=== PATIENT | female | born 1950 | race Asian ===

== ENCOUNTER 2020-02-24 06:09 | Outpatient (CLI) | payer MEDICARE, SELFPAY ==
[2020-02-24 16:38] LABS: SARS-CoV-2 RNA PCR Negative
== END 2020-02-24 06:10 | disposition home or self-care (01) ==
LOC: ANHCOVIDDT 06:10
PROVIDERS: PCP Internal Medicine; Visit Provider Internal Medicine Gastroenterology
DX: Z01.818 Encounter for other preprocedural examination (principal); Z11.59 Encounter for screening for other viral diseases
CPT/HCPCS: 87635; U0003

== ENCOUNTER 2020-02-26 00:41 | Day surgery (SDC) | payer MEDICARE, SELFPAY ==
[2020-02-22 10:54] VITALS: BMI 25.3
[2020-02-26] MEDS: LACTATED RINGERS 1,000 ML 150 ML IV CONT (06:48)
[2020-02-26 06:49] VITALS: BP 155/87; PULSE 65; RESP 16; TEMP 36.4; O2SAT 100; BMI 26.4
--- NOTE | 2020-02-26 07:03 | WPDANESEPPF ---
Anes - Initial Pre Proc Eval Procedure: Operation Date: 02/26/20 07:30 Proposed Procedures p Esophagogastroduodenoscopy - Mando Sanders MD Date/Time: 02/26/20 07:03 Surgeon: Mando Sanders MD Pre Op Diagnosis: UPPER GASTRIC PAIN, DYSPEPSIA Patient Data Age: 69 Gender: F Height: 4 ft 11 in Weight: 59.4 kg Last Vital Signs Temp 36.4 C 02/26/20 06:49 Pulse 65 02/26/20 06:49 Resp 16 02/26/20 06:49 BP 155/87 H 02/26/20 06:49 Pulse Ox 100 02/26/20 06:49 Allergies Allergy/AdvReac Type Severity Reaction Status Date / Time Penicillins Allergy Mild Unknown Verified 02/26/20 06:41 Home Medications Medication Instructions Recorded Confirmed Type metoprolol tartrate 50 mg PO BID 02/22/20 02/26/20 History olmesartan-hydrochlorothiazide 1 tablet PO DAILY 02/22/20 02/26/20 History [Benicar HCT] pantoprazole 40 mg PO HS 02/22/20 02/26/20 History rosuvastatin [Crestor] 10 mg PO DAILY 02/22/20 02/26/20 History Patient hx anesthesia problems: none Family hx anesthesia problems: none PMFSH Past Medical History Medical History GERD (gastroesophageal reflux disease) Hepatitis Hyperlipidemia Hypertension Social History Social History Gender identity (if verbalized by the patient): Female Anes - Eval Final PreProcedure Day of Procedure 02/26/20 07:03 Patient weight: overweight Heart: regular rate and rhythm Lungs: clear to auscultation Airway: Mallampati scale class II Neurological: other (alert) Last oral intake: >/= 8 hours ASA classification: III Emergent: no Anesthetic plan: proceed Anesthesia type and monitoring: general GIVS and standard monitoring Informed Consent: The patient's anesthetic plan and its attendant risks and benefits were discussed with the patient/family/POA. Questions were solicited and answers provided to the satisfaction of the patient/family/POA.
[2020-02-26] MEDS: BENZOCAINE (*SP) 60 ML SPRAY CAN (HURRICAINE) 1 SPRAY MUCOUS MEM (07:29)
--- NOTE | 2020-02-26 07:35 | P.CONGI_ITS ---
Assessment and Plan Assessment and plan (1) GERD (gastroesophageal reflux disease): Code(s): K21.9 - Gastro-esophageal reflux disease without esophagitis Status: Acute Assessment and Plan: Patient with recurrent and persistent epigastric pain. Poorly response to current medications. Plan is for an EGD to assess more thoroughly. If PPI dose fails to alleviate symptoms brief trial of Elavil may be a consideration for functional complaints. (2) Dyspepsia: Code(s): R10.13 - Epigastric pain Status: Acute GI Consult Note Consult date/time: 02/26/20 07:35 HPI: Brittany Walton is a 69 year old female Seen in evaluation at the request of Dr. Domingo Ferrer. patient complains of abdominal pain since February of 2019. She describes is epigastric pain. This pain usually disc comes after eating. W orse after breakfast. She describes a needle like discomfort. Followed by epigastric burning pain. Symptoms appear to occur off and on. She does note some regurgitation. She also complains of throat discomfort. Recently saw ENT and had a normal exam. She was empirically tried on antibiotics with no relief of symptoms. Previously had a colonoscopy in EGD [address] simi Motta that were described as unremarkable. Current medications include omeprazole trial with no change in symptoms. Currently on Protonix 40 mg p.o. daily. Review of Systems Review of Systems: All systems reviewed & are unremarkable except as noted in HPI and below PMFSH Past Medical History Medical History GERD (gastroesophageal reflux disease) Hepatitis Hyperlipidemia Hypertension Social History Social History Gender identity (if verbalized by the patient): Female Meds Home Medications and Allergies Home Medications Medication Instructions Recorded Confirmed Type metoprolol tartrate 50 mg PO BID 02/22/20 02/26/20 History olmesartan-hydrochlorothiazide 1 tablet PO DAILY 02/22/20 02/26/20 History [Benicar HCT] pantoprazole 40 mg PO HS 02/22/20 02/26/20 History rosuvastatin [Crestor] 10 mg PO DAILY 02/22/20 02/26/20 History Allergies Allergy/AdvReac Type Severity Reaction Status Date / Time Penicillins Allergy Mild Unknown Verified 02/26/20 06:41 Vital Signs Vital Signs - 24 hr 02/26/20 06:49 Temperature 36.4 C Pulse Rate 65 Respiratory Rate 16 Blood Pressure 155/87 H Pulse Oximetry 100 Exam Narrative: Exam Narrative: Physical exam reveals her to be alert. HEENT exam unremarkable. She is anicteric. Lungs are clear to auscultation and percussion. Heart is without murmur or extra sounds. Abdominal exam bowel sounds are present soft nontender with no organomegaly.
[2020-02-26 07:40] VITALS: BP 191/82; PULSE 61; RESP 17; O2SAT 98
[2020-02-26 07:50] VITALS: BP 173/83; PULSE 56; RESP 14; O2SAT 97
[2020-02-26 08:00] VITALS: BP 187/86; PULSE 53; RESP 15; O2SAT 96
== END 2020-02-26 08:20 | disposition home or self-care (01) ==
PROVIDERS: PCP Internal Medicine; Visit Provider Internal Medicine Gastroenterology
PROC: 0DJ08ZZ Inspection of Upper Intestinal Tract, Via Natural or Artificial Opening Endoscopic (ICD-10-PCS; CPT 43235; principal; 2020-02-26 07:30)
DX: K21.9 Gastro-esophageal reflux disease without esophagitis (principal); I10 Essential (primary) hypertension; E78.5 Hyperlipidemia, unspecified; Z86.19 Personal history of other infectious and parasitic diseases
CPT/HCPCS: 43239; 87081; 87635; C9803; J2704; J7120; U0003

== ENCOUNTER 2024-07-14 10:15 | Outpatient (CLI) | payer MEDICARE, SELFPAY ==
[2024-07-14 11:01] LABS: Alanine Aminotransferase 139 U/L (6-35); Albumin Level 4.4 g/dL (3.5-5.1); Alkaline Phosphatase 53 U/L (38-126); Amylase 54 U/L (30-110); Anion Gap 6 mmol/L (4-12); Aspartate Amino Transferase 162 U/L (14-36); Bilirubin,Total 0.6 mg/dL (0.2-1.3); Blood Urea Nitrogen 13 mg/dL (7-17); Calcium 9.3 mg/dL (8.4-10.2); Carbon Dioxide 31 mmol/L (22-30); Chloride 101 mmol/L (98-107); Cholesterol 148 mg/dL (0-200); Estimated Glomerular Filt Rate > 60; Glucose 114 mg/dL (65-110); HDL Direct 78 mg/dL; Lipase 67 U/L (23-300); Potassium 3.9 mmol/L (3.4-5.0); Sodium 138 mmol/L (137-145); Triglycerides 232 mg/dL (<150)
[2024-07-14 11:12] LABS: LDL Cholesterol Direct 42 mg/dL
== END 2024-07-14 10:16 | disposition home or self-care (01) ==
PROVIDERS: PCP Internal Medicine; Visit Provider Internal Medicine Gastroenterology
DX: E78.5 Hyperlipidemia, unspecified (principal)
CPT/HCPCS: 36415; 80053; 80061; 82150; 82248; 83690

== ENCOUNTER 2024-07-24 10:50 | Outpatient (CLI) | payer MEDICARE, SELFPAY ==
[2024-07-24 11:31] LABS: INR 0.9; Prothrombin Time 12.9 Seconds (11.1-14.7)
[2024-07-24 11:48] LABS: Immunoglobulin G 867 mg/dL (700-1600); Immunoglobulin M 58 mg/dL (40-230)
[2024-07-24 13:01] LABS: Hepatitis B Core IgM Result Negative (Negative)
[2024-07-26 06:29] LABS: Hepatitis Be Antibody REACTIVE (NON-REACTIVE); Hepatitis Be Antigen NON-REACTIVE (NON-REACTIVE)
[2024-07-28 15:43] LABS: Hepatitis B DNA PCR NOT DETECTED (NOT DETECTED); Hepatitis B DNA PCR NOT DETECTED Log IU/mL (NOT DETECTED)
[2024-07-29 13:14] LABS: Actin Antibody (IgG) <20 U (<20)
[2024-08-06 00:08] LABS: Mitochondrial (M2) Ab (IgG) <20.0 U
== END 2024-07-24 10:51 | disposition home or self-care (01) ==
LOC: ANHLAB 10:59
PROVIDERS: PCP Internal Medicine; Visit Provider Internal Medicine Gastroenterology
DX: B19.10 Unspecified viral hepatitis B without hepatic coma (principal); R74.8 Abnormal levels of other serum enzymes
CPT/HCPCS: 36415; 82784; 83520; 85610; 86038; 86039; 86364; 86705; 86707; 87350; 87517

== ENCOUNTER 2024-08-11 08:02 | Outpatient (CLI) | payer MEDICARE, SELFPAY ==
--- NOTE | ~2024-08-11 | MR_ITS ---
EXAMINATION: MR abdomen wo/w con DATE: 08/11/2024 08:55 INDICATION: Abnormal liver function tests. TECHNIQUE: Magnetic resonance imaging (MRI) of the abdomen was performed without and with 10 mL Multi Martin intravenous contrast. COMPARISON: None. FINDINGS: There are cysts in the liver measuring up to 4.7 cm. The gallbladder is absent. The common duct is no rmal and measures 7 mm. There is decreased signal intensity in the spleen on in-phase imaging, consis tent with hemosiderosis. The pancreas, adrenal glands, and kidneys are normal. There are no dilated l oops of bowel. There are no pathologically enlarged lymph nodes. There is no free intraperitoneal flu id. IMPRESSION: 1. No etiology for abnormal liver function tests. Reviewed, dictated and finalized at location B.
== END 2024-08-11 08:03 | disposition home or self-care (01) ==
PROVIDERS: PCP Internal Medicine; Visit Provider Internal Medicine Gastroenterology
DX: R74.8 Abnormal levels of other serum enzymes (principal)
CPT/HCPCS: 74183; A9577

== ENCOUNTER 2024-11-17 11:19 | Outpatient (CLI) | payer MEDICARE, SELFPAY ==
--- OUTSIDE RECORDS SUMMARY | 2024-11-17 12:00 | XMS_ITS | Clinical Summary ---
Author Organization [facility] Address [address] [place] [address] Care Team Providers Care Supervisor Chlorine Liquefaction Name Role Phone Domingo Ferrer MD Primary Care Provider Roby Andino MD Unavailable [phone] Source Comments [facility],non-owned Affiliates and Associated Physician Practices is amultiple site organization consisting of ambulatory clinics and hospital sitesin [place], [place], [place]. This disclosure is being madepursuant to the Care Everywhere program and may not contain all information available regarding this patient. Last updated 18.[facility] Allergies Active Allergy Reactions Criticality Noted Date Comments Richy Inhibitors Cough 01/10/2012 Amlodipine Base Swelling 12/03/2019 Atorvastatin Myalgias 10/21/2013 Penicillins Angioedema 01/10/2012 Medications * Be aware that medications may not be up to date on this document. Alwaysverify current medications with the patient. Medication Sig Dispensed Refills Start Date End Date Status Coenzyme Q10 (COQ10 PO) Active rosuvastatin (CRESTOR) 10 MG tablet Take 10 mg by mouth once daily Active MAGNESIUM PO Active olmesartan-hydroCHLOR Othiazide (BENICAR HCT) 40-12.5 MG tablet Take 1 tablet by mouth once daily 30 tablet 5 07/14/2020 Active Active Problems Patient Care Coordination No te Formatting of this note migh t be different from the original. Electric Blanket Packer - Dr. Roby Andino Problem Noted Date Diagnosed Date Essential hypertension 01/10/2012 Overview (11/16/2015): Exercise EKG Stress Test 11/2015 -- Exercise tolerance 185%. EKG normal. No CP. BP response normal. 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 Family History Medical History Relation Name Comments Lung Cancer Brother Stroke Father at 62 yo [place] Mother at 80 yo Relation Name Status Comments Brother Father Mother Social History Tobacco Use Types Packs/Day Years Used Date Smoking Tobacco: Former Cigarettes 0.8 20 0 12/13/1979 - 12/13/1999 Alcohol Use Standard Drinks/Week Comments Yes 12 (1 standard drink = 0.6 oz pu re alcohol) Sex and Gender Information Value Date Recorded Sex Assigned at Not on file Gender Identity Not on file Sexual Orientation Not on file Last Filed Vital Signs Vital Sign Reading Time Taken Comments Blood Pressure 145/80 12/03/2019 10:29 AM TRANSCRIPT CLERK Pulse 61 12/03/2019 10:29 AM TRANSCRIPT CLERK Temperature - - Respiratory Rate - - Oxygen Saturation 98% 12/03/2019 10:29 AM TRANSCRIPT CLERK Inhaled Oxygen Concentration - - Weight 59 kg (130 lb) 12/03/2019 10:29 AM TRANSCRIPT CLERK Height 152.4 cm (5') 12/03/2019 10:29 AM TRANSCRIPT CLERK Body Mass Index 25.39 12/03/2019 10:29 AM TRANSCRIPT CLERK Plan of Treatment Health Maintenance Due Date Last Done Comments BONE DENSITY TESTING 1950 COLOGUARD (AGES 45-75) - COLON CA SCREENING 1949 COLON MONITORING 1949 COLONOSCOPY - COLON CA SCREENING 1949 CT COLONOGRAPHY - COLON CA SCREENING 1950 Colorectal Cancer Screening 1950 FIT - COLON CA SCREENING 1949 FLEX SIG - COLON CA SCREENING 1950 HEPATITIS C SCREENING 03/04/1967 DTAP/TDAP/TD VACCINES (1 - Tdap) 1968 PNEUMOCOCCAL VACCINE 50+ (1 of 1 - PCV) 1999 ZOSTER VACCINE (1 of 2) 1999 MAMMOGRAM 09/17/2021 09/17/2019 SCREENING FOR DIABETES 02/16/2023 0, 12/17/2019, 03/02/2015 Respiratory Syncytial Virus (RSV) Vaccine Pt: or over 60 yrs (1 - 1-dose 75+ series) 2024 COVID-19 VACCINE (1 - 2023- season) 2024 INFLUENZA VACCINE (#1) 2024 9, 07/15/2018, 09/16/2017, Additional history exists DEPRESSION SCREENING 10/14/2024 MEDICARE AWV ? CALENDAR YEAR 2024 HEPATITIS B VACCINE Aged Out No longe r eligible based on patient's age to complete this topic HIB VACCINE Aged Out No longer eligi ble based on patient's age to complete this topic HPV VACCINE Aged Out No longer eligi ble based on patient's age to complete this topic MENINGOCOCCAL (Group B) VACCINE Aged Out No longer eligible based on patient's age to complete this topic MENINGOCOCCAL VACCINE Aged Out No shannan arti eligible based on patient's age to complete this topic Procedures Procedure Name Priority Date/Time Associated Diagnosis Comments BASIC METABOLIC PANEL (CALCI UM TOTAL) Routine 02/17/2020 Essential hypertension from Last 3 Months or Most Recently Relevant to Health Maintenance Results * BASIC METABOLIC PANEL (BMP) (02/17/2020) Blood BLOOD SPECIMEN / Unknown Roby Andino MD LAB - CHEMISTRY NEL[facility]REEDMAN Performing Organization Address City/State/[facility] Co de Phone Number OTHER LAB from Last 3 Months or Most Recently Relevant to Health Maintenance Care Teams Supervisor Chlorine Liquefaction Relationship Specialty Start Date End Date Domingo Ferrer MD [address] [place] [id number] PCP - General Internal Medicine 10/19/15 Roby Andino MD [address] [place] [id number] (work) Cardiology 10/19/15
--- OUTSIDE RECORDS SUMMARY | 2024-11-17 12:00 | XMS_ITS | Clinical Summary ---
Author Organization [facility] Address [address] [place] [address] [place] [address] Phone Care Team Providers Care Exterior Designer Name Role Phone Domingo Ferrer MD Primary Care Provider [phone] Allergies Active Allergy Reactions Criticality Noted Date Comments Richy Inhibitors Cough Low 01/10/2012 Atorvastatin Muscle Pain Low 10/21/2013 Penicillins Angioedema High 01/10/2012 Medications CALCIUM CARBONATE/VITAM IN D3 (CALCIUM + D ORAL) Take by mouth. Active ranitidine (ZANTAC) 150 mg Oral tablet Take 1 Tab by mouth 2 times daily. Active aspirin (AMARILYS) 81 mg Oral Tab Take 1 Tab by mouth daily. Active PV W-O ELIS/FERROUS FUMARATE/FA (M-VIT ORAL) Take by mouth. Active LACTOBACILLUS RHAMNOSUS GG (PROBIOTIC ORAL) Take by mouth. Active GLUC/NERISSA-MSM#1 /C/ABRIL/TORREY/BOR (OSTEO BI-FLEX ORAL) Take by mouth. Active hydrOXYzine HCl (ATARAX) 25 mg Oral tablet Take 1 Tab by mouth daily. Active loratadine (CLARITIN) 10 mg Oral tablet Take 1 Tab by mouth daily. Active clobetasol (TEMOVATE) 0.05 % Topical Crea Apply to affected area 2 times daily. Active calcipotriene (DOVONEX) 0.005 % Topical Crea Apply to affected area 2 times daily. Active Fluocinonide 0.1 % Topical Crea Apply to affected area. Active losartan-hydroc hlorothiazide (HYZAAR) 100-25 mg Oral tablet Take 0.5 Tabs by mouth daily. 45 Tab 3 05/25/2013 Active metoprolol tartrate (LOPRESSOR) 25 mg tablet Take 1 Tab by mouth 2 times daily. 180 Tab 3 01/18/2014 Active POTASSIUM CHLORIDE (K+ POTASSIUM ORAL) Take 1 Tab by mouth daily. Active Active Problems Patient Care Coordination No te Formatting of this note migh t be different from the original. 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 - Dr Roby Andino Problem Noted Date Diagnosed Date Essential hypertension, benign 01/10/2012 Hyperlipidemia 01/10/2012 Family History Medical History Relation Name Comments Lung Cancer Brother Stroke Father at 62yo Heart Attack Mother at 80yo Relation Name Status Comments Brother Father Mother Social History Tobacco Use Types Packs/Day Years Used Date Smoking Tobacco: Former Cigarettes 0.8 20 Smokeless Tobacco: Former Quit: 01/10/2000 Alcohol Use Standard Drinks/Week Comments Yes 10 (1 standard drink = 0.6 oz pu re alcohol) Comments Unknown Sex and Gender Information Value Date Recorded Sex Assigned at Not on file Legal Sex Female 6:08 AM SEARCH ENGINE OPTIMIZATION ANALYST Gender Identity Not on file Sexual Orientation Not on file Last Filed Vital Signs Vital Sign Reading Time Taken Comments Blood Pressure 138/78 10/15/2014 3:08 PM SEARCH ENGINE OPTIMIZATION ANALYST Pulse 75 10/15/2014 3:08 PM SEARCH ENGINE OPTIMIZATION ANALYST Temperature - - Respiratory Rate - - Oxygen Saturation 98% 10/15/2014 3:08 PM SEARCH ENGINE OPTIMIZATION ANALYST Inhaled Oxygen Concentration - - Weight 62.1 kg (137 lb) 10/15/2014 3:08 PM SEARCH ENGINE OPTIMIZATION ANALYST Height 151.1 cm (4' 11.5 ) 10/15/2014 3:08 PM CS T Body Mass Index 27.21 10/15/2014 3:08 PM SEARCH ENGINE OPTIMIZATION ANALYST Plan of Treatment Health Maintenance Due Date Last Done Comments DTAP/TDAP/TD VACCINES (1 - Tdap) 1968 COLORECTAL SCREENING 1994 Colorectal Cancer Screening 1994 FIT-DNA Q 3 years 1994 FIT/FOBT Q 1 year 1994 Flex Sig/CT Colonography Q 5 years 1994 PNEUMOCOCCAL VACCINE 65+ YEARS (1 of 1 - PCV) 03/08/19 99 ZOSTER VACCINE (1 of 2) 1999 OSTEOPOROSIS SCREENING 2014 RSV VACCINE (60+ or ) (1 - 1-dose 75+ series) 2024 INFLUENZA VACCINE (#1) 2024 Insurance [facility] [id number] Care Teams Exterior Designer Relationship Specialty Start Date End Date Domingo Ferrer MD [address] [place] [address] [place] [address] PCP - General Internal Medicine 04/08/13
--- OUTSIDE RECORDS SUMMARY | 2024-11-17 12:00 | XMS_ITS | Encounter Summary ---
Author Organization [facility] Address [address] [place] [address] Care Team Providers Care Day Haul Youth Supervisor Name Role Phone Domingo Ferrer MD Primary Care Provider Brittany Martins Unavailable [phone] Reason for Visit * Reason Onset Date Comments Medical Question/Miscellaneous 10/23/2024 Encounter Details Date Type Department Care Team (Late st Contact Info) Description 10/23/2024 Telephone [facility] Medical Group Primary Care at [address] [place] [address] Domingo Ferrer MD [address] [place] [address] [address] [place] [address] Medical Question/Miscellaneous Social History Tobacco Use Types Packs/Day Years Used Date Smoking Tobacco: Former Smokeless Tobacco: Never Alcohol Use Standard Drinks/Week Comments Yes 7 (1 standard drink = 0.6 oz pur e alcohol) PHQ-2 Answer Date Recorded PHQ-2 Total Score (If total score is 3 or more points, staff should administer the PHQ-9) 0 06/01/2024 Comments No Sex and Gender Information Value Date Recorded Sex Assigned at Not on file Legal Sex Female 6:37 PM DISPLAY TRIMMER Gender Identity Not on file Sexual Orientation Straight 08/10/2020 9: 29 AM CDT documented as of this encounter Miscellaneous Notes * Telephone Encounter - Ines Briggs - 10/23/2024 2:39 PM CST Medical Question/Miscellaneous Caller???s Concern: Jessica with Dr. Cole's office, called needing the fax number to send over the surgical clearance form. AC relayed information to Jessica. Does message need to be routed? No LAY TRIMMER documented in this encounter Plan of Treatment Not on file documented as of this encounter Visit Diagnoses Not on filedocumented in this encounter Care Teams Day Haul Youth Supervisor Relationship Specialty Start Date End Date Domingo Ferrer MD PCP - General 01/11/17 Brittany Martins PA Physician Welcome Desk Agent Orthopedic Surgery 08/30/20 documented as of this encounter
--- OUTSIDE RECORDS SUMMARY | 2024-11-17 12:00 | XMS_ITS | Clinical Summary ---
Author Organization [facility] Address [address] [place] [address] Care Team Providers Care Gas Engine Operator Name Role Phone Domingo Ferrer MD Primary Care Provider Brittany Martins Unavailable [phone] Allergies Active Allergy Reactions Criticality Noted Date Comments Richy Inhibitors Cough Low 01/10/2012 Amlodipine Swelling Medium 12/14/2023 Atorvastatin Muscle pain Medium 10/21/2013 Penicillins Swelling High Face and throat swelling Medications coenzyme Q10 10 mg capsule Take 1 capsule (10 mg total) by mouth daily Active cholecalciferol (VITAMIN D-3) 2000 unit capsule Take 1 capsule (2,000 Units total) by mouth daily 30 capsule 08/22/2020 Active candesartan (ATACAND) 32 mg tablet Take 0.5 tablets (16 mg total) by mouth daily 45 tablet 3 11/24/2020 Active carvediloL (COREG) 25 mg tablet 03/15/2021 Active ascorbic acid (VITAMIN C) 100 mg tablet Take 1 tablet (100 mg total) by mouth daily Active rosuvastatin (CRESTOR) 10 mg tablet TAKE 1 TABLET BY MOUTH EVERY DAY 90 tablet 3 07/24/2024 Active hydroCHLOROthia zide 12.5 mg tablet TAKE 2 TABLETS BY MOUTH DAILY 200 tablet 10/10/2024 Active Active Problems Problem Noted Date Diagnosed Date Anal fissure 12/14/2023 Lung nodule < 6cm on CT 01/05/2022 Right-sided chest wall pain 01/05/2022 History of 2019 novel coronavirus disease (COVID -19) 01/05/2022 Overflow incontinence of urine 08/23/2021 Assessment & Plan (09/06/2021 8:41 AM SAFETY PERSON): Trial of oxybutynin F/u prn Assessment & Plan (08/23/2021 3:25 PM SAFETY PERSON): Recommend kegel exercises to strengthen pelvic floor If no improvement will consider further evaluation at next visit. Trigeminal neuralgia of right side of face 07/12 Assessment & Plan (08/23/2021 3:23 PM SAFETY PERSON): S/p gabapentin resolved Assessment & Plan (07/12/2021 4:57 PM CDT): Went with gabapentin over Carbamezapine because the patient states she does not tolerate most medications well and gabapentin has less side effects and does not interact with other medications as much. Gabapentin 100mg daily for a week. If no improvement, instructed to increase to BID for another week. If still no improvement, can increase dose to 3x/week Instructed patient to call in 1 week to follow up rtc in 6 weeks. If no longer having symptoms can start weaning off medication Instructed patient that if she develops double vision or loss of vision then she needs to report to the ED for steroids and will possibly need a biopsy for evaluation of temporal arteritis Risk and benefits reviewed Chronic viral hepatitis B wi thout delta agent and without coma 05/05/2021 Elevated liver enzymes 05/05/2021 Impingement syndrome of left shoulder 08/18/2020 Arthritis of left acromioclavicular joint 2019 Biceps tendinitis of left upper extremity 2019 Laryngopharyngeal reflux (LPR) 07/13/2019 Assessment & Plan (07/14/2019 9:02 AM CDT): Start Pepcid 40 mg at bedtime Follow up if no improvement in 6 weeks Wear icing mixer LPR discussed and Handout provided Mouth sores 07/13/2019 Assessment & Plan (07/14/2019 9:03 AM CDT): Monitor for improvement with treatment of LPR Bruxism 07/13/2019 Assessment & Plan (07/14/2019 9:02 AM CDT): Wear icing mixer Epigastric pain 07/13/2019 Assessment & Plan (08/10/2019 1:59 PM CDT): As expected the pepcid no help and still has functional sx. I have known Brittany for 30 yrs and she has always had ibs. Last egd 12/29 normal and she does not respond to acid suppressants. She agrees to try elavil 10 mg hs and call me in 2-3 weeks and if that is not successful proceed to repeat egd. Assessment & Plan (07/13/2019 2:22 PM CDT): Months of functional sx of epi pain radiating substernally assoc with soreness of mouth and in context of stopping her mputhguard. Her complaints have resulted in 2 courses of anti fungals, visits to REGISTERED MEDICAL ASSISTANT, Dr Ferrer and Dr Waller. Currently to restart her mouth guard and try pepcid 40/d and return in 4 weeks. Oral pharyngeal candidiasis 06/16/2019 Assessment & Plan (09/14/2019 2:17 PM SAFETY PERSON): Previously treated with clotrimazole with minimal relief. Differential diagnosis includes lichen planus. Discussed use of Magic mouthwash with nystatin suspension swish and spit 4 times daily for the next 2 weeks. Patient will be following up in 2 weeks for re-evaluation. Patient verbalized understanding and agreed to plan of care at this time. Assessment & Plan (06/16/2019 12:15 PM CDT): Clinical exam correlates with oral, pharyngeal candidiasis. Possible esophageal candidiasis considering worsening GERD sx. Encourage treatment with clotrimazole troches 5xday x 2 weeks, and other supportive treatment therapies were advised. RTC p.r.n. Regarding condition Gastroesophageal reflux disease without esophagi tis 11/27/2017 Overview (11/27/2017): Added automatically from request for surgery [id number] Assessment & Plan (05/16/2020 9:48 AM CDT): Stable still endorsing early a.m. productive cough, intermittent reflex overnight based upon evening meals. Cnt. Protonix, modify diet and avoid eating before bed. Will Cnt. To monitor. Assessment & Plan (09/29/2019 9:17 AM SAFETY PERSON): Continue with omeprazole should increase to 40 mg by mouth daily in addition will follow up in office if any symptoms worsen. As we would consider EGD if continuing to have issues. Patient states she is feeling much better at this time however. Will send refill. In addition I have sent a refill on the Magic mouthwash for her to use as needed for mouth discomfort. Assessment & Plan (09/14/2019 2:16 PM SAFETY PERSON): Begin taking Prilosec 20 mg by mouth daily. In addition discussed importance of diet in regard to heard. Patient will follow up in 2 weeks for re-evaluation. We may need to increase Prilosec to 40 mg by mouth daily for short time. Patient verbalized understanding agreed to plan of care at this time. GERD (Gastroesophageal Reflux Disease) is best treated with life style changes. The more you are able to comply with these changes the more your heart burn or acid related issues will improve and not require medications. Many dietary sources increase acid levels these include carbonation, tomatoe based items, chocolate, alcohol and a variety of other sources. Please utilize the provided information regarding GERD and GERD management. Assessment & Plan (06/16/2019 12:14 PM CDT): Worsening GERD sx in new presentation/diagnosis of oral Alexandra would be concerning for possible esophagitis from fungal origin. Treating oral candidiasis appropriately given presentation, encouraged to take daily omeprazole as prior prescribed, and further recommendations pending upcoming consultation with creel clerk Abnormal fasting glucose 04/23/2017 Prolonged QT interval 12/17/2015 Overview (01/17/2017): Long QT Benign hypertension 08/03/2013 Overview (01/16/2017): HTN (hypertension), benign Assessment & Plan (10/05/2021 11:18 AM SAFETY PERSON): Bp in the office today BP Readings from Last 1 Encounters: 10/05/21 138/60 Continue current regimen of Hydrochlorothiazide 25 mg daily, candesartan 32 mg daily, and carvedilol 25 mg daily. Recommend DASH diet, heart-healthy lifestyle, exercise. Discussed the risks of hypertension. Follow-up in 3 months Assessment & Plan (09/06/2021 11:48 AM SAFETY PERSON): Bp in the office today BP Readings from Last 1 Encounters: 09/06/21 134/78 Continue current regimen of candesartan 32mg daily, and carvedilol 25mg daily Increase hctz to 25mg daily Recommend DASH diet, heart-healthy lifestyle, exercise. Discussed the risks of hypertension. F/u 1 month. Can consider splitting bp medications for better control at next visit(taking 1 or 2 in the morning and 1 in the evening) Assessment & Plan (08/23/2021 3:24 PM SAFETY PERSON): Bp in the office today 168/72 w/ manual repeat done by 162/70 Continue current regimen of HCTZ 12.5mg daily, monitor bp at home Recommend DASH diet, heart-healthy lifestyle, exercise. Discussed the risks of hypertension. F/u in 2 weeks. If no improvement will increase HCTZ dose Assessment & Plan (06/16/2020 8:46 AM CDT): Much improved but increased leg edema since doubling up on amlodipine- recommending decrease down to 5 mg daily and Cnt. Prior prescribed candesartan. Stress testing negative which is quite reassuring but she was encouraged to Cnt. With low-fat, low-sodium diet and mild to moderate daily exercise. Assessment & Plan (05/16/2020 9:49 AM CDT): A bit better upon recheck but blood pressures at home are quite elevated not responding to amlodipine. Given family Hx of heart disease, HLD and uncontrolled HTN recommending stress testing for further evaluation. In the interim recommending increasing her amlodipine to 10 mg daily and Cnt. Prior prescribed, start, metoprolol. Adding on aspirin 81 mg daily as [id number] D/T GERD. Heart healthy diet, mild to moderate daily exercise encouraged. Further direction pending results of stress testing in RTC in 1 month for HTN follow-up Assessment & Plan (03/16/2020 3:01 PM CDT): Normotensive in clinic as improved with recheck. Under care of historic interpreter monitoring her BP meds. Cnt. Prior prescribed antihypertensives, dash diet, mild to moderate daily exercise and will Cnt. To monitor. Assessment & Plan (09/29/2019 9:21 AM SAFETY PERSON): Continue with amlodipine 2.5 mg by mouth daily in addition to current treatment Assessment & Plan (09/14/2019 2:15 PM SAFETY PERSON): Continue with amlodipine 2.5 mg by mouth daily in addition to HYZAAR. Hypertension, Medical treament revolves around weight control, salt management, and meds when necessary. long as weight loss is necessary and you are able to drop weight we can cont to monitor the blood pressure and not add meds. Once the weight is not changing then it becomes nesessary to add meds to be able to reach the goal bp. Notify office with absolutely any changes including but not limited to increased BP, headaches, and/or any other concerning symptoms. Assessment & Plan (08/13/2019 3:31 PM CDT): Discussed adding amlodipine 2.5mg by mouth daily to patient's current regimen. Patient verbalized understanding and will begin this medication tomorrow. Patient instructed to follow up in office in one month for reevaluation, certainly sooner with any problems or concerns. Patient verbalized understanding and agreed to plan of care at this time. Hypertension, Medical treament revolves around weight control, salt management, and meds when necessary. long as weight loss is necessary and you are able to drop weight we can cont to monitor the blood pressure and not add meds. Once the weight is not changing then it becomes nesessary to add meds to be able to reach the goal bp. Assessment & Plan (10/17/2017 3:01 PM SAFETY PERSON): Resolved without recurrence. She never did take the amlodipine. It was removed from her active medication list. She was encouraged to continue to monitor her blood pressure intermittently at home. She is to contact the office with recurrent elevation. Assessment & Plan (09/26/2017 4:34 PM SAFETY PERSON): Blood pressure has been consistently elevated for approximately 2 weeks via home monitor. Historically, patient's blood pressure has been very well controlled on her current regimen. She notes a correlation between her recent flu shot and her elevated blood pressure. Although this is a possibility this is not a typical response to flu vaccine. I have recommended patient continue her current medications as previously prescribed. In addition, we will add amlodipine 2.5 mg to be taken on a daily basis. She was encouraged to monitor her blood pressure once to twice daily and return in 3 weeks with a log of her blood pressure readings. She will reach out in the interim with any persistent elevation or development of hypotension. She offered no further complaints and was in agreement with the plan of care. Disorder of intervertebral disc of cervical spin e 08/03/2013 Overview (01/17/2017): Cervical disc disorder Hyperlipidemia 08/03/2013 Overview (01/18/2017): Hyperlipidemia Assessment & Plan (05/16/2020 9:48 AM CDT): HLD considered office today D/T mention of exercise intolerance, shortness of breath given uncontrolled HTN. Cholesterol values reviewed with LDL at 62, total cholesterol 157 indicating well control. Cnt. With heart healthy diet, mild to moderate daily exercise as prior implemented and will Cnt. To monitor. Chronic pain 02/02/2013 Osteoarthritis of cervical spine 02/02/2013 Eczema 12/11/2012 Assessment & Plan (05/15/2017 3:40 PM CDT): I recommended she use topical clobetasol foam as previously prescribed by insole toe snipping machine operator. She is to follow up here or with her insole toe snipping machine operator with absolutely any change in, worsening, or non improvement in her condition. She is aware she should use this medication for a short duration and contact us with persistent complaints. Hemorrhoids 12/11/2012 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 Resolved Problems Problem Noted Date Diagnosed Date Resolved Date Tinea corporis 03/16/2020 03/16/2020 Assessment & Plan (03/16/2020 3:13 PM CDT): Clinical exam correlates with tinea corporis recommending treatment if in 250 q.day x2 week along with Lotrisone cream to apply. Drug S/Es, interactions discuss recommending Pt hold off on taking Crestor, EtOH use for the next 2 weeks while on medication. Cleansing techniques, preventative strategies discussed in detail and she was also advised to call us in 10-14 days for update to consider consultation w/o improvement. Functional diarrhea 11/26/2017 04/30/20 19 Assessment & Plan (11/26/2017 2:55 PM SAFETY PERSON): 2-6/day loose stools usually pc. Many yrs. No systemic sx/signs. Last colon 2013. Will repeat colon for CA surveillance and hopefully then treat ibs. Gastroesophageal reflux disease 10/17/2017 04/24/2018 Assessment & Plan (11/26/2017 2:57 PM SAFETY PERSON): Long Hx GERD and last EGD 2011 neg. C?O belching and heartburn. Exercise fanatic and only eats organic veggies cvery little meat. Will EGD for sx eval Assessment & Plan (10/17/2017 3:02 PM SAFETY PERSON): Previously this was treated by patient's creel clerk. She was taking medication believed to be a PPI. She is disinterested in using this class of medication or a daily medication for that matter. She is hoping for something to take on an as-needed basis. I recommended Zantac 150 mg up to twice daily as needed. She was encouraged to take this at least once daily at bedtime for the next 1-2 weeks and then she may take on an as-needed basis thereafter. She was encouraged to avoid spicy foods, citrus, tomatoes and tomato sauces, caffeine, chocolate, alcohol, and carbonated beverages as this may exacerbate her reflux symptoms. She was encouraged to contact the office with any change in, worsening, or non improvement in her condition. We talked about resumption of PPI but she is adverse at the present time. Hypertension 12/11/2012 04/24/2018 Hypercholesterolemia 12/11/2012 019 Arachnoid cyst 12/11/2012 04/24/2018 Encounters Date Type Department Care Team Description 10/30/2024 Orders Only [facility] Medical [facility] Primary Care at [address] [place] [address] Domingo Ferrer MD 10/23/2024 Telephone [facility] Primary Care at [address] [place] [address] Domingo Ferrer MD Medical Question/Miscellaneou s 08/25/2024 10:00 AM SAFETY PERSON Immunization [facility] [address] [place] [address] from Last 3 Months Immunizations Name Administration Dates Next Due Influenza, Quadrivalent, Hig h Dose, Preservative Free, Intrr 08/06/2023,07/25/2022,08/10/2021,08/02 Influenza, Split 08/03/2013 Influenza, Trivalent, High D ose, Split, Preservative Free, Intramuscular 08/25/2024,07/22/2019,07/15/2018,09/16,08/17/2016,07/29/2015,07/20/2014 Influenza, Trivalent, IM (MDV) 08/03/2013 Influenza, Unspecified 07/12/2021(Deferr ed: Patient Refused),06/16/2020(Deferred: Patient Refused - provider not giving),07/06/2019(Deferred: Patient Refused),06/16/2019(Deferred: Patient Refused - not available),06/08/2019(Deferred: Patient Refused) Pneumococcal Polysaccharide PPV23 03/15/2014 Surgical History Surgery Date Site/Laterality Comments ROTATOR CUFF REPAIR right rotator cuff surgery OTHER SURGICAL HISTORY cervical disc surgery CHOLECYSTECTOMY Cholecystectomy HYSTERECTOMY Hysterectomy NECK SURGERY neck surgery SHOULDER SURGERY shoulder surgery HYSTERECTOMY 10/14/2001 - 10/13/2002 Hysterectomy ROTATOR CUFF REPAIR right rotator cuff repair ROTATOR CUFF REPAIR Rotator cuff repair BREAST CYST ASPIRATION 10/14/1989 - 10/13/1990 Right OOPHORECTOMY COLONOSCOPY 10/14/2012 - 10/13/2013 ESOPHAGOGASTRODUODENOSCOPY 10/14/2007 - 10/13/2008 SPINE SURGERY Medical History Medical History Date Comments Hyperlipidemia Hyperlipidemia Hypertension Hypertension Hx Other Medical 01-Superintendent Pressure Hx Other Medical 02-Pain Managem ent Hx Other Medical 03-Neurologist Fibrocystic breast Breast cyst Chronic diarrhea frequently GERD (gastroesophageal reflux disease) Infectious viral hepatitis B >30 years ago Family History Medical History Relation Name Comments Diabetes Brother 1 Diabetes mellit us; Hypertension Brother 2 Hypertension; Diabetes type II Brother 3 Diabetes me llitus type 2; Diabetes Brother 4 Diabetes mellit us; Coronary artery disease Father Aleshia nary artery disease; Cause of : Coronary artery disease Heart attack Father Myocardial infa rction; Coronary artery disease Mother Aleshia nary artery disease; Cause of : Coronary artery disease Breast cancer Neg Hx Ovarian cancer Neg Hx Thyroid cancer Neg Hx Relation Name Status Comments Brother 1 Brother 2 Brother 3 Brother 4 Father (Age 63) Mother (Age 86) Social History Tobacco Use Types Packs/Day Years Used Date Smoking Tobacco: Former Smokeless Tobacco: Never Tobacco Cessation:Counseling Given: Not Answered Alcohol Use Standard Drinks/Week Comments Yes 7 (1 standard drink = 0.6 oz pur e alcohol) PHQ-2 Answer Date Recorded PHQ-2 Total Score (If total score is 3 or more points, staff should administer the PHQ-9) 0 06/01/2024 Comments No Sex and Gender Information Value Date Recorded Sex Assigned at Not on file Legal Sex Female 6:37 PM SAFETY PERSON Gender Identity Not on file Sexual Orientation Straight 08/10/2020 9: 29 AM CDT Obstetrics History Para Term AB IAB SAB Ectopic Multiple Livin g Live Births 3 1 1 Date Outcome GA Total Labor Labor/2nd/3rd Weight Sex Type Anes PTL Shauna A1 A5 Name Clin Term Last Filed Vital Signs Vital Sign Reading Time Taken Comments Blood Pressure 122/60 06/01/2024 10:13 AM CDT Pulse 86 06/01/2024 10:13 AM CDT Temperature 36.8 ??C (98.3 ??F) 06/01/2024 10:13 AM C DT Respiratory Rate 16 06/01/2024 10:13 AM CDT Oxygen Saturation 98% 06/01/2024 10:13 AM CDT Inhaled Oxygen Concentration - - Weight 58.5 kg (129 lb) 06/01/2024 10:13 AM CDT Height 149.9 cm (4' 11 ) 06/01/2024 10:13 AM CDT Body Mass Index 26.05 06/01/2024 10:13 AM CDT Plan of Treatment Health Maintenance Due Date Last Done Comments DTaP/Tdap/Td Vaccine (1 - Tdap) 1960 Zoster Vaccine (1 of 2) 1999 Osteoporosis Screening-Bone Density Scan 07/01/2008 07/01/2006 Pneumococcal vaccine 65+ (2 of 2 - PCV) 03/15/2015 03/15/2014 Depression Screening 06/01/2025 06/01/2024, 06/25/2023, 05/27/2023, Additional history exists Fall Risk Assessment 06/01/2025 06/01/2024, 06/25/2023, 05/27/2023, Additional history exists Well Visit 65+ 06/01/2025 06/01/2024, 05/14, 05/10/2022, Additional history exists Colon Cancer Screening-Colonoscopy 02/25/2030 02/26/2020, 01/09/2018, 12/31/2011 Hepatitis C Screening Completed 04/07/2018 Colon Cancer Screening-CT Colonography Discontinued 02/26/2020, 01/09/2018, 12/31/2011 Colon Cancer Screening-DNA Stool Discontinued 02/26/2020, 01/09/2018, 12/31/2011 Colon Cancer Screening-FIT Discontinued 02/25, 01/09/2018, 12/31/2011 Colon Cancer Screening-Sigmoidoscopy Discontinued 02/26/2020, 01/09/2018, 12/31/2011 Breast Cancer Screening-Mammogram Discontinued 07/10/2023, 06/05/2022, 03/07/2021, Additional history exists Influenza Vaccine Completed 08/25/2024, , 07/25/2022, Additional history exists Medical Devices Implanted Type Area General Repair Mechanic Device Identifier Shelf Expiration Date Model / Serial / Lot Screws Right: Shoulder Description:2 screws Procedures Procedure Name Priority Date/Time Associated Diagnosis Comments SCREENING MAMMOGRAM BILATERAL W [place] Schedule Routine, Read Routine (OP Routine) 07/10/2023 10:28 AM CDT Screening mammogram, encounter for COLONOSCOPY Routine 02/26/2020 HEPATITIS C AB REFLEX RNA QUANT PCR Routine 04/07/2018 7:30 AM CDT HM DEXA SCAN Routine 07/01/2006 from Last 3 Months or Most Recently Relevant to Health Maintenance Results * Screening Mammogram Bilateral W [place] (07/10/2023 10:28 AM CDT) Anatomical Region Laterality Modality Breast Bilateral Mammography 07/10/2023 10:5 3 AM CDT Impressions 07/10/2023 10:53 AM CDT There is no mammographic evidence of malignancy. A 1 year screening mammogram is recommended. BI-RADS: 1 - Negative. The patient has been or will be contacted. The patient will be entered into a reminder system with a target due date of 1 year for her next mammogram. Electronically signed by: Donna Galvez M.D. Narrative 07/10/2023 10:53 AM CDT EXAMINATION: SCREENING MAMMOGRAM BILATERAL W [place] ORDERING HEALTHCARE PROVIDER: SELF SCREENING MAMMOGRAM HISTORY: Routine screening mammography. COMPARISON: ??06/05/2022, 03/07/2021, 09/17/2019 TECHNIQUE: CC and MLO views of the bilateral breasts were obtained with digital technique using breast tomosynthesis with C view. Computer aided detection was utilized. FINDINGS: DENSITY: The tissue of the bilateral breasts is heterogeneously dense, which may obscure small masses. BREASTS: There are no suspicious masses, suspicious calcifications, or other suspicious findings in either breast. There has been no suspicious interval change. us Self Screening Mammogram IMG MAMMO PROCEDURES Fi nal Result * Colonoscopy (02/26/2020) Anatomical Region Laterality Modality Other Historical Provider ENDOSCOPY PROCEDURES Allyn l Result * Hepatitis C Antibody Reflex Hepatitis C RNA Quantitative PCR (04/07/2018 7:30 AM CDT) Hep C Ab Negative Negative [facility] Blood specimen (specimen) 04/07/2018 7:30 AM CDT 04/07/2018 3:43 PM CDT Narrative [facility] CUI - 04/07/2018 4:40 PM CDT Domingo Ferrer MD LAB MICROBIOLOGY - GENE RAL ORDERABLES Final Result [facility] [id number] [address] [place] [address] * DEXA SCAN (07/01/2006) Pathologist [facility] DEXA Scan Abnormal us Historical Provider HEALTH MAINTENANCE Final Result from Last 3 Months or Most Recently Relevant to Health Maintenance Insurance T MEDICARE [facility]IC[facility] Address: [address] [address] [place] [address] AET MEDICARE [facility] MEDICARE Advance Directives For more information, please contact: [phone] * Full Code (Latest Code Status on File) Date Activated Date Inactivated Comments 01/09/2018 7:35 AM 01/09/2018 12:03 PM Care Teams Gas Engine Operator Relationship Specialty Start Date End Date Domingo Ferrer MD PCP - General 01/11/17 Brittany Martins PA Physician Skip [employer]er Blasting Orthopedic Surgery 08/30/20
--- OUTSIDE RECORDS SUMMARY | 2024-11-17 12:00 | XMS_ITS | Encounter Summary ---
Author Organization [facility] Address [address] [place] [address] Care Team Providers Care Liquor Establishment Manager Name Role Phone Domingo Ferrer MD Primary Care Provider Brittany Martins Unavailable [phone] Reason for Visit * Reason Onset Date Comments Scheduling Appointments 03/06/2021 Confirmi ng mammogram appt Encounter Details Date Type Department Care Team (Late st Contact Info) Description 03/06/2021 Telephone [facility] [address] [place] [id number] [address] Nolan RT Scheduling Appointments (Confirming mammogram appt) Social History Tobacco Use Types Packs/Day Years Used Date Smoking Tobacco: Former Smokeless Tobacco: Never Alcohol Use Standard Drinks/Week Comments Yes 7 (1 standard drink = 0.6 oz pur e alcohol) PHQ-2 Answer Date Recorded PHQ-2 Total Score (If total score is 3 or more points, staff should administer the PHQ-9) 0 11/09/2020 Comments No Sex and Gender Information Value Date Recorded Sex Assigned at Not on file Legal Sex Female 6:37 PM HAIRSPRING ADJUSTER Gender Identity Not on file Sexual Orientation Straight 08/10/2020 9: 29 AM CDT documented as of this encounter Plan of Treatment Not on file documented as of this encounter Visit Diagnoses Not on filedocumented in this encounter Care Teams Liquor Establishment Manager Relationship Specialty Start Date End Date Domingo Ferrer MD PCP - General 01/11/17 Brittany Martins PA Physician Director Of Sleep Orthopedic Surgery 08/30/20 documented as of this encounter
--- OUTSIDE RECORDS SUMMARY | 2024-11-17 12:00 | XMS_ITS | Referral Summary ---
Author Organization [email or web address] Address [address] [facility] [place] [address] Care Team Providers Care Pole Framer Name Role Phone Domingo Ferrer MD Primary Care Provider Roby Andino MD Unavailable [phone] [email or web address],non-owned Affiliates and Associated Physician Practices is amultiple site organization consisting of ambulatory clinics and hospital sitesin [place], [place], [place] and [place]. This disclosure is being madepursuant to the Care Everywhere program and may not contain all information available regarding this patient. Last updated 18.[email or web address] Allergies Active Allergy Reactions Criticality Noted Date [...] migh t be different from the original. [employer] Bi Developer - Dr. Roby Andino Problem Noted Date Diagnosed Date Essential hypertension 01/10/2012 Overview (11/16/2015): Exercise EKG Stress Test 11/2015 -- Exercise tolerance 185%. EKG normal. No CP. BP response normal. 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 Social History Tobacco Use Types Packs/Day Years [...] Comments Blood Pressure 145/80 12/03/2019 10:29 AM SERVICE COORDINATOR [facility] Pulse 61 12/03/2019 10:29 AM SERVICE COORDINATOR [facility] Temperature - - Respiratory Rate - - Oxygen Saturation 98% 12/03/2019 10:29 AM SERVICE COORDINATOR [facility] Inhaled Oxygen Concentration - - Weight 59 kg (130 lb) 12/03/2019 10:29 AM SERVICE COORDINATOR [facility] Height 152.4 cm (5') 12/03/2019 10:29 AM SERVICE [facility]ORDINATOR [facility] Body Mass Index 25.39 12/03/2019 10:29 AM SERVICE COORDINATOR [facility] Plan of Treatment Not on file Procedures Procedure Name Priority Date/Time Associated Diagnosis Comments BASIC METABOLIC PANEL (CALCI UM TOTAL) Routine 02/17/2020 Essential hypertension from Last 3 Months or Most Recently Relevant to Health Maintenance Results * BASIC METABOLIC PANEL (BMP) (02/17/2020) Blood BLOOD SPECIMEN / Unknown Roby Andino MD LAB - CHEMISTRY NELIDA FREEDMAN [facility] Organization Address City/State/ZIP Co de Phone Number OTHER LAB from Last 3 Months or Most Recently Relevant to Health Maintenance Care Teams Pole Framer Relationship Specialty Start Date End Date Domingo Ferrer MD [address] [facility] [address] [phone] PCP - General Internal Medicine 10/19/15 Roby Andino MD [address] [place] [id number] Cardiology 10/19/15
--- OUTSIDE RECORDS SUMMARY | 2024-11-17 12:00 | XMS_ITS | Referral Summary ---
Author Organization [facility] Address [address] [place] [address] Care Team Providers Care Garland Maker Name Role Phone Domingo Ferrer MD Primary Care Provider EliezerBrittany jiang Unavailable [phone] Encounters Date Type Department Care Team Description 10/30/2024 Orders Only [facility] Medical [facility] Primary Care at [address] [place] [phone] Domingo Ferrer MD 10/23/2024 Telephone [facility] Medical [facility] Primary Care at [address] [place] [phone] Domingo Ferrer MD Medical Question/Miscellaneou s 08/25/2024 10:00 AM AIRCRAFT ELECTRICAL SYSTEMS SPECIALIST Immunization [facility] Medical [facility] [address] [place] [phone] from Last 3 Months Allergies Active Allergy Reactions Criticality Noted Date [...] 08/23/2021 Assessment & Plan (09/06/2021 8:41 AM AIRCRAFT ELECTRICAL SYSTEMS SPECIALIST): Trial of oxybutynin F/u prn Assessment & Plan (08/23/2021 3:25 PM AIRCRAFT ELECTRICAL SYSTEMS SPECIALIST): Recommend kegel exercises to strengthen pelvic floor If no improvement will consider further evaluation at next visit. Trigeminal neuralgia of right side of face 07/12 Assessment & Plan (08/23/2021 3:23 PM AIRCRAFT ELECTRICAL SYSTEMS SPECIALIST): S/p gabapentin resolved Assessment & Plan (07/12/2021 [...] if no improvement in 6 weeks Wear night clerk auditor LPR discussed and Handout provided Mouth sores 07/13/2019 Assessment & Plan (07/14/2019 9:03 AM CDT): Monitor for improvement with treatment of LPR Bruxism 07/13/2019 Assessment & Plan (07/14/2019 9:02 AM CDT): Wear night clerk auditor Epigastric pain 07/13/2019 Assessment & Plan (08/10/2019 [...] 2 courses of anti fungals, visits to AFFILIATE MARKETING MANAGER, Dr Ferrer and Dr Waller. Currently to restart her mouth guard and try pepcid 40/d and return in 4 weeks. Oral pharyngeal candidiasis 06/16/2019 Assessment & Plan (09/14/2019 2:17 PM AIRCRAFT ELECTRICAL SYSTEMS SPECIALIST): Previously treated with clotrimazole with minimal relief. [...] (11/27/2017): Added automatically from request for surgery [id number] Assessment & Plan (05/16/2020 9:48 AM CDT): Stable still endorsing early a.m. productive cough, intermittent reflex overnight based upon evening meals. Cnt. Protonix, modify diet and avoid eating before bed. Will Cnt. To monitor. Assessment & Plan (09/29/2019 9:17 AM AIRCRAFT ELECTRICAL SYSTEMS SPECIALIST): Continue with omeprazole should increase to 40 [...] discomfort. Assessment & Plan (09/14/2019 2:16 PM AIRCRAFT ELECTRICAL SYSTEMS SPECIALIST): Begin taking Prilosec 20 mg by mouth [...] and further recommendations pending upcoming consultation with wired music operator Abnormal fasting glucose 04/23/2017 Prolonged QT interval 12/17/2015 Overview (01/17/2017): Long QT Benign hypertension 08/03/2013 Overview (01/16/2017): HTN (hypertension), benign Assessment & Plan (10/05/2021 11:18 AM AIRCRAFT ELECTRICAL SYSTEMS SPECIALIST): Bp in the office today BP Readings from Last 1 Encounters: 10/05/21 138/60 Continue current regimen of Hydrochlorothiazide 25 mg daily, candesartan 32 mg daily, and carvedilol 25 mg daily. Recommend DASH diet, heart-healthy lifestyle, exercise. Discussed the risks of hypertension. Follow-up in 3 months Assessment & Plan (09/06/2021 11:48 AM AIRCRAFT ELECTRICAL SYSTEMS SPECIALIST): Bp in the office today BP Readings [...] evening) Assessment & Plan (08/23/2021 3:24 PM AIRCRAFT ELECTRICAL SYSTEMS SPECIALIST): Bp in the office today 168/72 w/ [...] Adding on aspirin 81 mg daily as [id number] D/T GERD. Heart healthy diet, mild to moderate daily exercise encouraged. Further direction pending results of stress testing in RTC in 1 month for HTN follow-up Assessment & Plan (03/16/2020 3:01 PM CDT): Normotensive in clinic as improved with recheck. Under care of hog cutter monitoring her BP meds. Cnt. Prior prescribed antihypertensives, dash diet, mild to moderate daily exercise and will Cnt. To monitor. Assessment & Plan (09/29/2019 9:21 AM AIRCRAFT ELECTRICAL SYSTEMS SPECIALIST): Continue with amlodipine 2.5 mg by mouth daily in addition to current treatment Assessment & Plan (09/14/2019 2:15 PM AIRCRAFT ELECTRICAL SYSTEMS SPECIALIST): Continue with amlodipine 2.5 mg by mouth [...] bp. Assessment & Plan (10/17/2017 3:01 PM AIRCRAFT ELECTRICAL SYSTEMS SPECIALIST): Resolved without recurrence. She never did take the amlodipine. It was removed from her active medication list. She was encouraged to continue to monitor her blood pressure intermittently at home. She is to contact the office with recurrent elevation. Assessment & Plan (09/26/2017 4:34 PM AIRCRAFT ELECTRICAL SYSTEMS SPECIALIST): Blood pressure has been consistently elevated for [...] topical clobetasol foam as previously prescribed by dynamotor repairer. She is to follow up here or with her dynamotor repairer with absolutely any change in, worsening, or [...] 19 Assessment & Plan (11/26/2017 2:55 PM AIRCRAFT ELECTRICAL SYSTEMS SPECIALIST): 2-6/day loose stools usually pc. Many yrs. No systemic sx/signs. Last colon 2013. Will repeat colon for CA surveillance and hopefully then treat ibs. Gastroesophageal reflux disease 10/17/2017 04/24/2018 Assessment & Plan (11/26/2017 2:57 PM AIRCRAFT ELECTRICAL SYSTEMS SPECIALIST): Long Hx GERD and last EGD 2011 neg. C?O belching and heartburn. Exercise fanatic and only eats organic veggies cvery little meat. Will EGD for sx eval Assessment & Plan (10/17/2017 3:02 PM AIRCRAFT ELECTRICAL SYSTEMS SPECIALIST): Previously this was treated by patient's wired music operator. She was taking medication believed to be [...] Hypercholesterolemia 12/11/2012 019 Arachnoid cyst 12/11/2012 04/24/2018 Immunizations Name Administration Dates Next Due Influenza, Quadrivalent, Hig h Dose, Preservative Free, Intrr 08/06/2023,07/25/2022,08/10/2021,08/02 Influenza, Split 08/03/2013 Influenza, Trivalent, High D ose, Split, Preservative Free, Intramuscular 08/25/2024,07/22/2019,07/15/2018,09/16,08/17/2016,07/29/2015,07/20/2014 Influenza, Trivalent, IM (MDV) 08/03/2013 Influenza, Unspecified 07/12/2021(Deferr ed: Patient Refused),06/16/2020(Deferred: Patient Refused - provider not giving),07/06/2019(Deferred: Patient Refused),06/16/2019(Deferred: Patient Refused - not available),06/08/2019(Deferred: Patient Refused) Pneumococcal Polysaccharide PPV23 03/15/2014 Social History Tobacco Use Types Packs/Day Years [...] on file Legal Sex Female 6:37 PM AIRCRAFT ELECTRICAL SYSTEMS SPECIALIST Gender Identity Not on file Sexual Orientation Straight 08/10/2020 9: 29 AM CDT Last Filed Vital Signs Vital Sign Reading [...] 06/01/2024 10:13 AM CDT Plan of Treatment Not on file Medical Devices Implanted Type Area Water And Gas Helper Device Identifier Shelf Expiration Date Model / Serial / Lot Screws Right: Shoulder Description:2 screws Procedures Procedure Name Priority Date/Time Associated Diagnosis Comments SCREENING MAMMOGRAM BILATERAL W MARA Schedule Routine, Read Routine (OP Routine) 07/10/2023 10:28 AM CDT Screening mammogram, encounter for COLONOSCOPY Routine 02/26/2020 HEPATITIS C AB REFLEX RNA QUANT PCR Routine 04/07/2018 7:30 AM CDT HM DEXA SCAN Routine 07/01/2006 from Last 3 Months or Most Recently Relevant to Health Maintenance Results * Screening Mammogram Bilateral W Mara (07/10/2023 10:28 AM CDT) Anatomical Region Laterality [...] AM CDT EXAMINATION: SCREENING MAMMOGRAM BILATERAL W MARA ORDERING HEALTHCARE PROVIDER: SELF SCREENING MAMMOGRAM HISTORY: [...] There has been no suspicious interval change. Self Screening Mammogram IMG MAMMO PROCEDURES Fi nal Result * Colonoscopy (02/26/2020) Anatomical Region Laterality Modality Other Historical Provider ENDOSCOPY PROCEDURES Allyn l Result * Hepatitis C Antibody Reflex Hepatitis C RNA Quantitative PCR (04/07/2018 7:30 AM CDT) Pathologist [facility] Hep C Ab Negative Negative [facility] Blood specimen (specimen) 04/07/2018 7:30 AM CDT 04/07/2018 3:43 PM CDT Narrative BRENDEN - 04/07/2018 4:40 PM CDT Domingo Ferrer MD LAB MICROBIOLOGY - GENE RAL ORDERABLES Final Result BREND[facility] [address] [place] [address] * DEXA SCAN (07/01/2006) Pathologist [facility] DEXA Scan Abnormal Historical Provider HEALTH MAINTENANCE Final Result from Last 3 Months or Most Recently Relevant to Health Maintenance Insurance AET MEDICARE MEDICARE [facility] MEDICARE Address: [address] [address] [place] [address] AET MEDICARE A[employer] MEDICARE Advance Directives For more information, please contact: [phone] * Full Code (Latest Code Status on File) Date Activated Date Inactivated Comments 01/09/2018 7:35 AM 01/09/2018 12:03 PM Care Teams Garland Maker Relationship Specialty Start Date End Date Domingo Ferrer MD PCP - General 01/11/17 Brittany Martins PA Physician Missile Inspector Orthopedic Surgery 08/30/20
--- OUTSIDE RECORDS SUMMARY | 2024-11-17 12:00 | XMS_ITS | Patient Health Summary ---
Author Organization [facility] Address [address] [facility] [place] [address] Care Team Providers Care Rn Patient Services Name Role Phone Domingo Ferrer MD Primary Care Provider Roby Andino MD Unavailable [phone] Note from [facility],non-owned Affiliates and Associated Physician Practices is amultiple site organization consisting of ambulatory clinics and hospital sitesin [place] and [place]. This disclosure is being madepursuant to the Care Everywhere program and may not contain all information available regarding this patient. Last updated 18.[facility] Allergies * Richy Inhibitors(Cough) * Amlodipine Base(Swelling) * Atorvastatin(Myalgias) * Penicillins(Angioedema) * Metoprolol(Rash) -Medium Criticality,Inactive Medications * Be aware that medications may not be up to date on this document. Alwaysverify current medications with the patient. 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 Social History Tobacco [...] Comments Blood Pressure 145/80 12/03/2019 10:29 AM SUPERVISOR WET ROOM Pulse 61 12/03/2019 10:29 AM SUPERVISOR WET ROOM Temperature - - Respiratory Rate - - Oxygen Saturation 98% 12/03/2019 10:29 AM SUPERVISOR WET ROOM Inhaled Oxygen Concentration - - Weight 59 kg (130 lb) 12/03/2019 10:29 AM SUPERVISOR WET ROOM Height 152.4 cm (5') 12/03/2019 10:29 AM SUPERVISOR WET ROOM Body Mass Index 25.39 12/03/2019 10:29 AM SUPERVISOR WET ROOM Procedures * BASIC METABOLIC PANEL (CALCIUM TOTAL)(Performed 02/17/2020) Performed for Essential hypertension * BASIC METABOLIC PANEL (CALCIUM TOTAL)(Performed 12/17/2019) Performed for Essential hypertension * EKG 12-LEAD(Performed 12/03/2019) Performed for History of prolonged Q-T interval on ECG, Essential hypertension * EKG 12-LEAD(Performed 11/21/2016) Performed for Essential hypertension * LAB MISC TEST(Performed 03/16/2016) * STRESS TEST WALKING(Performed 11/16/2015) Performed for Exertional chest pain, Hypertension, essential, Familial combined hyperlipidemia, Prolonged Q-T interval on ECG * EKG 12-LEAD(Performed 10/19/2015) Performed for Exertional chest pain, Hypertension, essential, Familial combined hyperlipidemia * DERMATOPATHOLOGY(Performed 04/29/2015) * COMPREHENSIVE METABOLIC PANEL(Performed 03/02/2015) * LIPID PROFILE(Performed 03/02/2015) * VITAMIN D 25-HYDROXY(Performed 03/02/2015) * DERMATOPATHOLOGY(Performed 01/11/2015) * DERMATOPATHOLOGY(Performed 12/28/2014) * DERMATOPATHOLOGY(Performed 05/22/2011) Results * BASIC METABOLIC PANEL (BMP) (02/17/2020) Only the most recent of2 resultswithin the time period is included. Blood BLOOD SPECIMEN / Unknown Roby Andino MD LAB - CHEMISTRY NELIDA FREEDMAN OTHER LAB * EKG 12-LEAD (12/03/2019 11:04 AM SUPERVISOR WET ROOM) Only the most recent of3 resultswithin the time period is included. Narrative Betsy Byrne - 12/03/2019 11:04 AM SUPERVISOR WET ROOM Vy Dorman ? 12/03/2019 11:04 AM See Scan Procedure Note DormanVy - 12/03/2019 11:04 AM CST See Scan Roby Andino MD ECG ORDERABLES * LAB MISC TEST (03/16/2016) Other BLOOD SPECIMEN / Unknown Historical Provider LAB SEND OUT * STRESS TEST WALKING (11/16/2015 11:05 AM SUPERVISOR WET ROOM) Narrative Sandrine Garcia - 11/16/2015 11:05 AM SUPERVISOR WET ROOM Sandrine Garcia ? 11/16/2015 11:05 AM See scan Roby Andino MD CARDIAC SERVICES ORD ERABLES * PATHOLOGY TISSUE FOR DERMATOLOGY (04/29/2015 3:55 PM CDT) Only the most recent of4 resultswithin the time period is included. 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 ? The specimen consists of a 7x3x7 mm piece of skin. The margin is inked green. The specimen is submitted in 1 cassette. Jar 0. MICROSCOPIC DESCRIPTION: There is epidermal hyperplasia overlying dilated blood vessels and fibroplasia. There are fibroblasts and collagen bundles oriented parallel to the skin surface with elongated blood vessels, some of which are oriented perpendicular to the skin surface. Collagen is present. Electronically signed out by Nicole [place] M.D. 05/03/2015 1:05:53PM [facility] Comment: Performed at: Dermatopathology Laboratory [facility] - Department of Dermatology [address] [place] [address], 5th [place] [address] Phone number: [phone] FAX: [phone] Skin (tissue) specimen (specimen) 04/29/2015 3:55 PM CDT 05/02/2015 Narrative [facility] - 05/03/2015 1:06 PM CDT Specimen A: Type->Excision ?Site->left ear ?History->Hx of ?Impression->HX of [facility] [id number] ?Check Margins:->Yes ?Prior Biopsy->Yes Bruno Vaughan MD LAB - PATHOLOGY/CYTO LOGY ORDERABLES [facility] [address] [facility] 5th Floor Lab [address] [phone] * VITAMIN D 25-HYDROXY (03/02/2015) Blood specimen (specimen) BLOOD SPECIMEN / Unknown Historical Provider LAB - CHEMISTRY [place] * COMPREHENSIVE METABOLIC PANEL (03/02/2015) Blood specimen (specimen) BLOOD SPECIMEN / Unknown Historical Provider LAB - CHEMISTRY [place] * LIPID PROFILE (03/02/2015) Blood specimen (specimen) BLOOD SPECIMEN / Unknown Historical Provider LAB - CHEMISTRY [place] Care Teams Rn Patient Services Relationship Specialty Start Date End Date Domingo Ferrer MD [address] [place] [phone] PCP - General Internal Medicine 10/19/15 Roby Andino MD [address] [address] Cardiology 10/19/15
[2024-11-17 13:40] LABS: Triglycerides 668 mg/dL (<150)
== END 2024-11-17 11:20 | disposition home or self-care (01) ==
LOC: ANHGOSHLAB 11:20
PROVIDERS: PCP Internal Medicine; Visit Provider Internal Medicine Gastroenterology
DX: E78.5 Hyperlipidemia, unspecified (principal)
CPT/HCPCS: 36415; 84478

== ENCOUNTER 2024-11-19 08:04 | Outpatient (CLI) | payer MEDICARE, SELFPAY ==
--- OUTSIDE RECORDS SUMMARY | 2024-11-19 08:09 | XMS_ITS | Referral Summary ---
Author Organization [facility] Address [address] [place] [address] Care Team Providers Care Pathology Manager Name Role Phone Domingo Ferrer MD Primary Care Provider EliezerBrittany jiang Unavailable [phone] Encounters Date Type Department Care Team Description 10/30/2024 Orders Only [facility] Medical [facility] Primary Care at [address] [place] [phone] Domingo Ferrer MD 10/23/2024 Telephone [facility] Medical [facility] Primary Care at [address] [place] [phone] Domingo Ferrer MD Medical Question/Miscellaneou s 08/25/2024 10:00 AM SENIOR QUALITY CONTROL INSPECTOR Immunization [facility] Medical [facility] [address] [place] [phone] from Last 3 Months Allergies Active Allergy [...] 08/23/2021 Assessment & Plan (09/06/2021 8:41 AM SENIOR QUALITY CONTROL INSPECTOR): Trial of oxybutynin F/u prn Assessment & Plan (08/23/2021 3:25 PM SENIOR QUALITY CONTROL INSPECTOR): Recommend kegel exercises to strengthen pelvic floor If no improvement will consider further evaluation at next visit. Trigeminal neuralgia of right side of face 07/12 Assessment & Plan (08/23/2021 3:23 PM SENIOR QUALITY CONTROL INSPECTOR): S/p gabapentin resolved Assessment & Plan (07/12/2021 [...] if no improvement in 6 weeks Wear range scientist LPR discussed and Handout provided Mouth sores 07/13/2019 Assessment & Plan (07/14/2019 9:03 AM CDT): Monitor for improvement with treatment of LPR Bruxism 07/13/2019 Assessment & Plan (07/14/2019 9:02 AM CDT): Wear range scientist Epigastric pain 07/13/2019 Assessment & Plan (08/10/2019 [...] 2 courses of anti fungals, visits to TRAINING ANALYST, Dr Ferrer and Dr Waller. Currently to restart her mouth guard and try pepcid 40/d and return in 4 weeks. Oral pharyngeal candidiasis 06/16/2019 Assessment & Plan (09/14/2019 2:17 PM SENIOR QUALITY CONTROL INSPECTOR): Previously treated with clotrimazole with minimal relief. [...] (11/27/2017): Added automatically from request for surgery [id number] Assessment & Plan (05/16/2020 9:48 AM CDT): Stable still endorsing early a.m. productive cough, intermittent reflex overnight based upon evening meals. Cnt. Protonix, modify diet and avoid eating before bed. Will Cnt. To monitor. Assessment & Plan (09/29/2019 9:17 AM SENIOR QUALITY CONTROL INSPECTOR): Continue with omeprazole should increase to 40 [...] discomfort. Assessment & Plan (09/14/2019 2:16 PM SENIOR QUALITY CONTROL INSPECTOR): Begin taking Prilosec 20 mg by mouth [...] and further recommendations pending upcoming consultation with green building design specialist Abnormal fasting glucose 04/23/2017 Prolonged QT interval 12/17/2015 Overview (01/17/2017): Long QT Benign hypertension 08/03/2013 Overview (01/16/2017): HTN (hypertension), benign Assessment & Plan (10/05/2021 11:18 AM SENIOR QUALITY CONTROL INSPECTOR): Bp in the office today BP Readings from Last 1 Encounters: 10/05/21 138/60 Continue current regimen of Hydrochlorothiazide 25 mg daily, candesartan 32 mg daily, and carvedilol 25 mg daily. Recommend DASH diet, heart-healthy lifestyle, exercise. Discussed the risks of hypertension. Follow-up in 3 months Assessment & Plan (09/06/2021 11:48 AM SENIOR QUALITY CONTROL INSPECTOR): Bp in the office today BP Readings [...] evening) Assessment & Plan (08/23/2021 3:24 PM SENIOR QUALITY CONTROL INSPECTOR): Bp in the office today 168/72 w/ [...] Adding on aspirin 81 mg daily as [id number] D/T GERD. Heart healthy diet, mild to moderate daily exercise encouraged. Further direction pending results of stress testing in RTC in 1 month for HTN follow-up Assessment & Plan (03/16/2020 3:01 PM CDT): Normotensive in clinic as improved with recheck. Under care of tank cleaning supervisor monitoring her BP meds. Cnt. Prior prescribed antihypertensives, dash diet, mild to moderate daily exercise and will Cnt. To monitor. Assessment & Plan (09/29/2019 9:21 AM SENIOR QUALITY CONTROL INSPECTOR): Continue with amlodipine 2.5 mg by mouth daily in addition to current treatment Assessment & Plan (09/14/2019 2:15 PM SENIOR QUALITY CONTROL INSPECTOR): Continue with amlodipine 2.5 mg by mouth [...] bp. Assessment & Plan (10/17/2017 3:01 PM SENIOR QUALITY CONTROL INSPECTOR): Resolved without recurrence. She never did take the amlodipine. It was removed from her active medication list. She was encouraged to continue to monitor her blood pressure intermittently at home. She is to contact the office with recurrent elevation. Assessment & Plan (09/26/2017 4:34 PM SENIOR QUALITY CONTROL INSPECTOR): Blood pressure has been consistently elevated for [...] topical clobetasol foam as previously prescribed by cherry dipper. She is to follow up here or with her cherry dipper with absolutely any change in, worsening, or [...] 19 Assessment & Plan (11/26/2017 2:55 PM SENIOR QUALITY CONTROL INSPECTOR): 2-6/day loose stools usually pc. Many yrs. No systemic sx/signs. Last colon 2013. Will repeat colon for CA surveillance and hopefully then treat ibs. Gastroesophageal reflux disease 10/17/2017 04/24/2018 Assessment & Plan (11/26/2017 2:57 PM SENIOR QUALITY CONTROL INSPECTOR): Long Hx GERD and last EGD 2011 neg. C?O belching and heartburn. Exercise fanatic and only eats organic veggies cvery little meat. Will EGD for sx eval Assessment & Plan (10/17/2017 3:02 PM SENIOR QUALITY CONTROL INSPECTOR): Previously this was treated by patient's green building design specialist. She was taking medication believed to be [...] on file Legal Sex Female 6:37 PM SENIOR QUALITY CONTROL INSPECTOR Gender Identity Not on file Sexual Orientation Straight 08/10/2020 9: 29 AM CDT Last Filed Vital Signs Vital Sign Reading Time Taken Comments Blood Pressure 122/60 06/01/2024 10:13 AM CDT Pulse 86 06/01/2024 10:13 AM CDT Temperature 36.8 C (98.3 F) 06/01/2024 10:13 AM CDT Respiratory Rate 16 06/01/2024 10:13 AM CDT Oxygen Saturation 98% 06/01/2024 10:13 AM CDT Inhaled Oxygen Concentration - - Weight 58.5 kg (129 lb) 06/01/2024 10:13 AM CDT Height 149.9 cm (4' 11 ) 06/01/2024 10:13 AM CDT Body Mass Index 26.05 06/01/2024 10:13 AM CDT Plan of Treatment Not on file Medical Devices Implanted Type Area Landscape Architect Device Identifier Shelf Expiration Date Model / Serial / Lot Screws Right: Shoulder Description:2 screws Procedures Procedure Name Priority Date/Time Associated Diagnosis Comments SCAN - LABS 11/17/2024 SCREENING MAMMOGRAM BILATERAL W MARA Schedule Routine, Read Routine (OP Routine) 07/10/2023 10:28 AM CDT Screening mammogram, encounter for COLONOSCOPY Routine 02/26/2020 HEPATITIS C AB REFLEX RNA QUANT PCR Routine 04/07/2018 7:30 AM CDT HM DEXA SCAN Routine 07/01/2006 from Last 3 Months or Most Recently Relevant to Health Maintenance Results * SCAN - LABS (11/17/2024) us Domingo Ferrer MD Final R esult * Screening Mammogram Bilateral W Mara (07/10/2023 [...] SCREENING MAMMOGRAM HISTORY: Routine screening mammography. COMPARISON: 06/05/2022, 03/07/2021, 09/17/2019 TECHNIQUE: CC and MLO views [...] Quantitative PCR (04/07/2018 7:30 AM CDT) Pathologist [facility] Hep C Ab Negative Negative [facility] Blood specimen (specimen) 04/07/2018 7:30 AM CDT 04/07/2018 3:43 PM CDT Narrative BR[facility] - 04/07/2018 4:40 PM CDT Domingo Ferrer MD LAB MICROBIOLOGY - GENE RAL ORDERABLES Final Result [facility] [id number] Department [place] [address] * DEXA SCAN (07/01/2006) Pathologist [facility] DEXA Scan Abnormal us Historical Provider MD HEALTH MAINTENANCE Final Result from Last 3 Months or Most Recently Relevant to Health Maintenance Insurance T MEDICARE MEDICARE SOLUTIONS [facility] MEDICARE [employer] MEDICARE Advance Directives For more information, please contact: [phone] * Full Code (Latest Code Status on File) Date Activated Date Inactivated Comments 01/09/2018 7:35 AM 01/09/2018 12:03 PM Care Teams Pathology Manager Relationship Specialty Start Date End Date Domingo Ferrer MD PCP - General 01/11/17 Brittany Martins PA Physician Lawyer Probate Orthopedic Surgery 08/30/20
--- OUTSIDE RECORDS SUMMARY | 2024-11-19 08:09 | XMS_ITS | Patient Health Summary ---
Author Organization [facility] Address [address] [place] [address] Care Team Providers Care Sewer Line Photo Inspector Name Role Phone Domingo Ferrer MD Primary Care Provider Roby Andino MD Unavailable [phone] Note from [facility],non-owned Affiliates and Associated Physician Practices is amultiple site organization consisting of ambulatory clinics and hospital sitesin [place], [place], [place] and [place]. This disclosure is being madepursuant to the Care Everywhere program and may not contain all information available regarding this patient. Last updated 18.[facility] Allergies * Richy Inhibitors(Cough) * Amlodipine Base(Swelling) [...] Comments Blood Pressure 145/80 12/03/2019 10:29 AM LEGISLATORS Pulse 61 12/03/2019 10:29 AM LEGISLATORS Temperature - - Respiratory Rate - - Oxygen Saturation 98% 12/03/2019 10:29 AM LEGISLATORS Inhaled Oxygen Concentration - - Weight 59 kg (130 lb) 12/03/2019 10:29 AM LEGISLATORS Height 152.4 cm (5') 12/03/2019 10:29 AM LEGISLATORS Body Mass Index 25.39 12/03/2019 10:29 AM LEGISLATORS Procedures * BASIC METABOLIC PANEL (CALCIUM TOTAL)(Performed [...] LAB * EKG 12-LEAD (12/03/2019 11:04 AM LEGISLATORS) Only the most recent of3 resultswithin the time period is included. Narrative Betsy Byrne - 12/03/2019 11:04 AM LEGISLATORS Dandy Vy Dae 12/03/2019 11:04 AM See Scan Procedure Note Vy Dorman - 12/03/2019 11:04 AM CST See Scan Roby Andino MD ECG ORDERABLES * LAB MISC TEST (03/16/2016) Other BLOOD SPECIMEN / Unknown Historical Provider LAB SEND OUT * STRESS TEST WALKING (11/16/2015 11:05 AM LEGISLATORS) Narrative Sandrine Garcia - 11/16/2015 11:05 AM LEGISLATORS Sandrine Garcia 11/16/2015 11:05 AM See scan Roby Andino MD CARDIAC SERVICES ORD ERABLES * PATHOLOGY TISSUE FOR DERMATOLOGY (04/29/2015 3:55 PM CDT) Only the most recent of4 resultswithin the time period is included. 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 The specimen consists of a 7x3x7 mm [...] out by Nicole Edwards M.D. 05/03/2015 1:05:53PM [facility] Comment: Performed at: Dermatopathology Laboratory [facility] - Department of Dermatology [address] [place] [address], 5th [place] [address] Phone number: [phone] FAX: [phone] Skin (tissue) specimen (specimen) 04/29/2015 3:55 PM CDT 05/02/2015 Narrative [facility] - 05/03/2015 1:06 PM CDT Specimen A: Type->Excision Site->left ear History->Hx of Impression->HX of [facility] [id number] Check Margins:->Yes Prior Biopsy->Yes Bruno Vaughan MD LAB - PATHOLOGY/CYTO LOGY ORDERABLES [facility] [address] [place] [address]. [address] [place] [address], [facility] [phone] * VITAMIN D 25-HYDROXY (03/02/2015) Blood specimen (specimen) BLOOD SPECIMEN / Unknown Historical Provider LAB - CHEMISTRY O RDERABLES * COMPREHENSIVE METABOLIC PANEL (03/02/2015) Blood specimen (specimen) BLOOD SPECIMEN / Unknown Historical Provider LAB - CHEMISTRY O RDERABLES * LIPID PROFILE (03/02/2015) Blood specimen (specimen) BLOOD SPECIMEN / Unknown Historical Provider LAB - CHEMISTRY O RDERASUZAN Care Teams Sewer Line Photo Inspector Relationship Specialty Start Date End Date Domingo Ferrer MD [address] [place] [address] [address] [place] [phone] PCP - General Internal Medicine 10/19/15 Roby Andino MD [address] [place] [address] Cardiology 10/19/15
--- OUTSIDE RECORDS SUMMARY | 2024-11-19 08:09 | XMS_ITS | Encounter Summary ---
Author Organization [facility] Healthcare Address [address] [place] [address] Care Team Providers Care Car Customizer Name Role Phone Domingo Ferrer MD Primary Care Provider Brittany Martins Unavailable [phone] Reason for Visit * Reason Onset Date Comments Medical Question/Miscellaneous 10/23/2024 Encounter Details Date Type Department Care Team (Late st Contact Info) Description 10/23/2024 Telephone [facility] Medical Group Primary Care at [address] [place] [address] Domingo Ferrer MD [address] [place] [address] [address] [place] [address] Medical Question/Miscellaneous Social History Tobacco [...] on file Legal Sex Female 6:37 PM HANDY MAN Gender Identity Not on file Sexual Orientation [...] Does message need to be routed? No Y MAN documented in this encounter Plan of Treatment Not on file documented as of this encounter Visit Diagnoses Not on filedocumented in this encounter Care Teams Car Customizer Relationship Specialty Start Date End Date Domingo Ferrer MD PCP - General 01/11/17 Brittany Martins PA Physician Gang Mower Operator Orthopedic Surgery 08/30/20 documented as of this encounter
--- OUTSIDE RECORDS SUMMARY | 2024-11-19 08:09 | XMS_ITS | Clinical Summary ---
Author Organization [facility] Address [address] [place] [address] Care Team Providers Care Architectural Designer Name Role Phone Domingo Ferrer MD Primary Care Provider Brittany Martins Unavailable [phone] Allergies Active Allergy Reactions Criticality Noted Date [...] 08/23/2021 Assessment & Plan (09/06/2021 8:41 AM SPECIAL EDUCATOR): Trial of oxybutynin F/u prn Assessment & Plan (08/23/2021 3:25 PM SPECIAL EDUCATOR): Recommend kegel exercises to strengthen pelvic floor If no improvement will consider further evaluation at next visit. Trigeminal neuralgia of right side of face 07/12 Assessment & Plan (08/23/2021 3:23 PM SPECIAL EDUCATOR): S/p gabapentin resolved Assessment & Plan (07/12/2021 [...] if no improvement in 6 weeks Wear national guard member LPR discussed and Handout provided Mouth sores 07/13/2019 Assessment & Plan (07/14/2019 9:03 AM CDT): Monitor for improvement with treatment of LPR Bruxism 07/13/2019 Assessment & Plan (07/14/2019 9:02 AM CDT): Wear national guard member Epigastric pain 07/13/2019 Assessment & Plan (08/10/2019 [...] 2 courses of anti fungals, visits to BOWLING ALLEY FLOORS INSTALLER, Dr Ferrer and Dr Waller. Currently to restart her mouth guard and try pepcid 40/d and return in 4 weeks. Oral pharyngeal candidiasis 06/16/2019 Assessment & Plan (09/14/2019 2:17 PM SPECIAL EDUCATOR): Previously treated with clotrimazole with minimal relief. [...] (11/27/2017): Added automatically from request for surgery [id number] Assessment & Plan (05/16/2020 9:48 AM CDT): Stable still endorsing early a.m. productive cough, intermittent reflex overnight based upon evening meals. Cnt. Protonix, modify diet and avoid eating before bed. Will Cnt. To monitor. Assessment & Plan (09/29/2019 9:17 AM SPECIAL EDUCATOR): Continue with omeprazole should increase to 40 [...] discomfort. Assessment & Plan (09/14/2019 2:16 PM SPECIAL EDUCATOR): Begin taking Prilosec 20 mg by mouth [...] and further recommendations pending upcoming consultation with inspector machined parts Abnormal fasting glucose 04/23/2017 Prolonged QT interval 12/17/2015 Overview (01/17/2017): Long QT Benign hypertension 08/03/2013 Overview (01/16/2017): HTN (hypertension), benign Assessment & Plan (10/05/2021 11:18 AM SPECIAL EDUCATOR): Bp in the office today BP Readings from Last 1 Encounters: 10/05/21 138/60 Continue current regimen of Hydrochlorothiazide 25 mg daily, candesartan 32 mg daily, and carvedilol 25 mg daily. Recommend DASH diet, heart-healthy lifestyle, exercise. Discussed the risks of hypertension. Follow-up in 3 months Assessment & Plan (09/06/2021 11:48 AM SPECIAL EDUCATOR): Bp in the office today BP Readings [...] evening) Assessment & Plan (08/23/2021 3:24 PM SPECIAL EDUCATOR): Bp in the office today 168/72 w/ [...] Adding on aspirin 81 mg daily as [id number]-ftnfdd D/T GERD. Heart healthy diet, mild to moderate daily exercise encouraged. Further direction pending results of stress testing in RTC in 1 month for HTN follow-up Assessment & Plan (03/16/2020 3:01 PM CDT): Normotensive in clinic as improved with recheck. Under care of taffy puller monitoring her BP meds. Cnt. Prior prescribed antihypertensives, dash diet, mild to moderate daily exercise and will Cnt. To monitor. Assessment & Plan (09/29/2019 9:21 AM SPECIAL EDUCATOR): Continue with amlodipine 2.5 mg by mouth daily in addition to current treatment Assessment & Plan (09/14/2019 2:15 PM SPECIAL EDUCATOR): Continue with amlodipine 2.5 mg by mouth [...] bp. Assessment & Plan (10/17/2017 3:01 PM SPECIAL EDUCATOR): Resolved without recurrence. She never did take the amlodipine. It was removed from her active medication list. She was encouraged to continue to monitor her blood pressure intermittently at home. She is to contact the office with recurrent elevation. Assessment & Plan (09/26/2017 4:34 PM SPECIAL EDUCATOR): Blood pressure has been consistently elevated for [...] topical clobetasol foam as previously prescribed by bogger operator. She is to follow up here or with her bogger operator with absolutely any change in, worsening, [...] 19 Assessment & Plan (11/26/2017 2:55 PM SPECIAL EDUCATOR): 2-6/day loose stools usually pc. Many yrs. No systemic sx/signs. Last colon 2013. Will repeat colon for CA surveillance and hopefully then treat ibs. Gastroesophageal reflux disease 10/17/2017 04/24/2018 Assessment & Plan (11/26/2017 2:57 PM SPECIAL EDUCATOR): Long Hx GERD and last EGD 2011 neg. C?O belching and heartburn. Exercise fanatic and only eats organic veggies cvery little meat. Will EGD for sx eval Assessment & Plan (10/17/2017 3:02 PM SPECIAL EDUCATOR): Previously this was treated by patient's inspector machined parts. She was taking medication believed to be [...] Department Care Team Description 10/30/2024 Orders Only [facility] Medical [facility] Primary Care at [address] [place] [address] Domingo Ferrer MD 10/23/2024 Telephone [facility] Primary Care at [address] [place] [address] Domingo Ferrer MD Medical Question/Miscellaneou s 08/25/2024 10:00 AM SPECIAL EDUCATOR Immunization [facility] [address] [place] [address] from Last 3 Months Immunizations Name Administration [...] Hyperlipidemia Hyperlipidemia Hypertension Hypertension Hx Other Medical 01-Animal Chiropractor Hx Other Medical 02-Pain Managem ent Hx [...] on file Legal Sex Female 6:37 PM SPECIAL EDUCATOR Gender Identity Not on file Sexual Orientation [...] history exists Medical Devices Implanted Type Area Software Engineer Device Identifier Shelf Expiration Date Model / Serial / Lot Screws Right: Shoulder Description:2 screws Procedures Procedure Name Priority Date/Time Associated Diagnosis Comments SCAN - LABS 11/17/2024 SCREENING MAMMOGRAM BILATERAL W [place] Schedule Routine, [...] R esult * Screening Mammogram Bilateral W [place] (07/10/2023 [...] - GENE RAL ORDERABLES Final Result [facility] [address] Department [place] [address] * DEXA SCAN (07/01/2006) Pathologist [facility] DEXA Scan Abnormal Historical Provider HEALTH MAINTENANCE Final Result from Last 3 Months or Most Recently Relevant to Health Maintenance Insurance T MEDICARE MEDICARE SOLUTIONS [facility] MEDICARE Address: [address] [address] [place] [address] AET MEDICARE [facility] MEDICARE Advance Directives For more information, please contact: [phone] * Full Code (Latest Code Status on File) Date Activated Date Inactivated Comments 01/09/2018 7:35 AM 01/09/2018 12:03 PM Care Teams Architectural Designer Relationship Specialty Start Date End Date Domingo Ferrer MD PCP - General 01/11/17 Brittany Martins PA Physician Account Group Supervisor Orthopedic Surgery 08/30/20
--- OUTSIDE RECORDS SUMMARY | 2024-11-19 08:09 | XMS_ITS | Encounter Summary ---
Author Organization [facility] Address [address] [place] [address] Care Team Providers Care Design Printer Balloon Name Role Phone Domingo Ferrer MD Primary Care Provider Brittany Martins Unavailable [phone] Reason for Visit * Reason Onset Date Comments Scheduling Appointments 03/06/2021 Confirmi ng mammogram appt Encounter Details Date Type Department Care Team (Late st Contact Info) Description 03/06/2021 Telephone [facility] [address] [place] [phone] [address] RT Scheduling Appointments (Confirming mammogram [...] on file Legal Sex Female 6:37 PM CHIEF OPERATING OFFICER Gender Identity Not on file Sexual Orientation Straight 08/10/2020 9: 29 AM CDT documented as of this encounter Plan of Treatment Not on file documented as of this encounter Visit Diagnoses Not on filedocumented in this encounter Care Teams Design Printer Balloon Relationship Specialty Start Date End Date Domingo Ferrer MD PCP - General 01/11/17 Brittany Martins PA Physician Claim Rep Orthopedic Surgery 08/30/20 documented as of this encounter
--- OUTSIDE RECORDS SUMMARY | 2024-11-19 08:09 | XMS_ITS | Referral Summary ---
Author Organization [facility] Address [address] [place] [address] Care Team Providers Care Crosscutter Name Role Phone Domingo Ferrer MD Primary Care Provider Roby Andino MD Unavailable [phone] Source Comments [facility],non-owned Affiliates and Associated Physician Practices is amultiple site organization consisting of ambulatory clinics and hospital sitesin [place], [place], [place] and [place]. This disclosure is being madepursuant to the Care Everywhere program and may not contain all information available regarding this patient. Last updated 18.[facility] Allergies Active Allergy Reactions Criticality Noted Date [...] migh t be different from the original. Trimmer Machine Operator - Dr. Roby Andino Problem Noted Date [...] Comments Blood Pressure 145/80 12/03/2019 10:29 AM BAG CHECKER Pulse 61 12/03/2019 10:29 AM BAG CHECKER Temperature - - Respiratory Rate - - Oxygen Saturation 98% 12/03/2019 10:29 AM BAG CHECKER Inhaled Oxygen Concentration - - Weight 59 kg (130 lb) 12/03/2019 10:29 AM BAG CHECKER Height 152.4 cm (5') 12/03/2019 10:29 AM BAG CHECKER Body Mass Index 25.39 12/03/2019 10:29 AM BAG CHECKER Plan of Treatment Not on file Procedures Procedure Name Priority Date/Time Associated Diagnosis Comments BASIC METABOLIC PANEL (CALCI UM TOTAL) Routine 02/17/2020 Essential hypertension from Last 3 Months or Most Recently Relevant to Health Maintenance Results * BASIC METABOLIC PANEL (BMP) (02/17/2020) Blood BLOOD SPECIMEN / Unknown Roby Andino MD LAB - CHEMISTRY NELIDA FREEDMAN [facility] Organization Address City/State/ZIP Co de Phone Number OTHER LAB from Last 3 Months or Most Recently Relevant to Health Maintenance Care Teams Crosscutter Relationship Specialty Start Date End Date Domingo Ferrer MD [address] [facility] [address] [place] [phone] PCP - General Internal Medicine 10/19/15 Roby Andino MD [address] [place] [address] Cardiology 10/19/15
--- OUTSIDE RECORDS SUMMARY | 2024-11-19 08:09 | XMS_ITS | Clinical Summary ---
Author Organization [facility] Address [address] [place] [address] [place] [address] Phone Care Team Providers Care Taxonomy Teacher Name Role Phone Domingo Ferrer MD Primary Care Provider [phone] Allergies Active Allergy Reactions Criticality Noted Date [...] migh t be different from the original. Instrumentation Tech - Dr Roby Andino Problem Noted Date [...] on file Legal Sex Female 6:08 AM ROLL WINDER Gender Identity Not on file Sexual Orientation Not on file Last Filed Vital Signs Vital Sign Reading Time Taken Comments Blood Pressure 138/78 10/15/2014 3:08 PM ROLL WINDER Pulse 75 10/15/2014 3:08 PM ROLL WINDER Temperature - - Respiratory Rate - - Oxygen Saturation 98% 10/15/2014 3:08 PM ROLL WINDER Inhaled Oxygen Concentration - - Weight 62.1 kg (137 lb) 10/15/2014 3:08 PM ROLL WINDER Height 151.1 cm (4' 11.5 ) 10/15/2014 3:08 PM CS T Body Mass Index 27.21 10/15/2014 3:08 PM ROLL WINDER Plan of Treatment Health Maintenance Due Date [...] series) 2024 INFLUENZA VACCINE (#1) 2024 Insurance [facility] [place] [id number] Care Teams Taxonomy Teacher Relationship Specialty Start Date End Date Domingo Ferrer MD [address] [place] [address] [place] [id number] PCP - General Internal Medicine 04/08/13
--- OUTSIDE RECORDS SUMMARY | 2024-11-19 08:09 | XMS_ITS | Clinical Summary ---
Author Organization [facility] Address [address] [place] [address] Care Team Providers Care Clinical Cytopathologist Name Role Phone Domingo Ferrer MD Primary Care Provider Roby Andino MD Unavailable [phone] Source Comments [facility],non-owned Affiliates and Associated Physician Practices is amultiple site organization consisting of ambulatory clinics and hospital sitesin [place], [place], [place] and [place]. This disclosure is being madepursuant to the Care Everywhere program and may not contain all information available regarding this patient. Last updated 18.[facility] Allergies Active Allergy Reactions Criticality Noted Date [...] migh t be different from the original. Manager Regional - Dr. Roby Andino Problem Noted Date Diagnosed Date Essential hypertension 01/10/2012 Overview (11/16/2015): Exercise EKG Stress Test 11/2015 -- Exercise tolerance 185%. EKG normal. No CP. BP response normal. 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 Pulse 61 12/03/2019 10:29 AM SCIENCE TEACHER Temperature - - Respiratory Rate - - Oxygen Saturation 98% 12/03/2019 10:29 AM SCIENCE TEACHER Inhaled Oxygen Concentration - - Weight 59 kg (130 lb) 12/03/2019 10:29 AM SCIENCE TEACHER Height 152.4 cm (5') 12/03/2019 10:29 AM SCIENCE TEACHER Body Mass Index 25.39 12/03/2019 10:29 AM SCIENCE TEACHER Plan of Treatment Health Maintenance Due Date [...] history exists DEPRESSION SCREENING 10/14/2024 MEDICARE AWV CALENDAR YEAR 2024 HEPATITIS B VACCINE Aged [...] LAB - CHEMISTRY NELIDA FREEDMAN OTHER LAB from Last 3 Months or Most Recently Relevant to Health Maintenance Care Teams Clinical Cytopathologist Relationship Specialty Start Date End Date Domingo Ferrer MD [address] [place] [id number] PCP - General Internal Medicine 10/19/15 Roby Andino MD [address] [place] [id number] Cardiology 10/19/15
[2024-11-19 14:39] LABS: Cholesterol 161 mg/dL (0-200); HDL Direct 59 mg/dL; Triglycerides 338 mg/dL (<150)
[2024-11-19 14:49] LABS: LDL Cholesterol Direct 43 mg/dL
== END 2024-11-19 08:05 | disposition home or self-care (01) ==
LOC: ANHGOSHLAB 08:06
PROVIDERS: PCP Internal Medicine; Visit Provider Internal Medicine Gastroenterology
DX: E78.5 Hyperlipidemia, unspecified (principal)
CPT/HCPCS: 36415; 80061